=== PATIENT | male | born 1995 | race Caucasian/White ===

== ENCOUNTER 2024-09-19 13:52 | Emergency (ER) | payer BC ==
[2024-09-19] MEDS ORDERED: Acetaminophen 500 MG TAB ONE (14:31)
[2024-09-19] MEDS ORDERED: PROPOFOL 0 ML ONE (15:52)
[2024-09-19] MEDS ORDERED: PROPOFOL 20 ML ONE (16:02)
== END 2024-09-19 16:30 | disposition home or self-care (01) ==
LOC: ERS 13:52
DX: S52.502A Unspecified fracture of the lower end of left radius, initial encounter for closed fracture (principal); W01.0XXA Fall on same level from slipping, tripping and stumbling without subsequent striking against object, initial encounter
CPT/HCPCS: 25660; 99152; J2704